=== PATIENT | male | born 2000 | race Caucasian/White ===

== ENCOUNTER 2022-10-10 11:10 | Emergency (ER) | payer BC, SELFPAY ==
[2022-10-10 11:52] VITALS: BP 134/90; PULSE 94; RESP 16; TEMP 36.6; O2SAT 100
--- NOTE | 2022-10-10 12:23 | ED.SKABFB ---
HPI - Skin/Abscess/Foreign Bdy General Chief complaint: Skin/Abscess/Foreign Body Stated complaint: infected spot on buttock Time Seen by Provider: 10/10/22 12:22 Source: patient, family, RN notes reviewed and old records reviewed Mode of arrival: ambulatory Limitations: no limitations History of Present Illness HPI narrative: 22-year-old male accompanied by significant other [facility] raised type of lesion at top of his buttocks which started on Wednesday. Patient states area has increased in size and discomfort in the past 24 hours making it difficult and uncomfortable to sit. Patient states that he did attempt to drain area with disinfected needle. Area appears to be pilonidal cyst at cleft of buttock with tissue red and inflamed with increased pain with palpation at site and warmth. Patient denies any known fevers, has taken Ibuprofen for his discomfort. MD complaint: abscess/boil (pilonidal cyst) Onset (ago): day(s) (3 days) Location: buttocks (cleft of) Severity scale (1-10): 8 Quality: other (throbbing) Treatments prior to arrival: attempted to drain pus at home and NSAID Related Data Home Medications Medication Instructions Recorded Confirmed bupropion HCl 100 mg tablet,12 hr 150 mg PO DAILY 08/25/22 10/10/22 sustained-release (Wellbutrin SR) clobetasol 0.05 % topical ointment 1 applic topical DAILY 10/10/22 10/10/22 hydrocortisone 2.5 % topical 1 applic topical DAILY 10/10/22 10/10/22 ointment mometasone 0.1 % topical solution 1 applic topical DAILY 10/10/22 10/10/22 tacrolimus 0.1 % topical ointment 1 applic topical DAILY 10/10/22 10/10/22 triamcinolone acetonide 0.1 % 1 applic topical DAILY 10/10/22 10/10/22 topical ointment Allergies Allergy/AdvReac Type Severity Reaction Status Date / Time Fish Containing Products Allergy Swelling Verified 10/10/22 11:52 of Lip/Tongue/Throat No Known Allergies Allergy Verified 10/10/22 11:52 NUTS Allergy Intermediate Unknown Uncoded 10/10/22 11:52 Review of Systems Review of Systems: CONSTITUTIONAL: Denies fever, chills, or sweats. CARDIOVASCULAR: Denies chest pain, palpitations, or edema. RESPIRATORY: Denies cough or dyspnea. GASTROINTESTINAL: Denies abdominal pain, nausea, vomiting SKIN: Reports redness and swelling to tissue area at cleft of buttock since Wednesday, no purulent drainage warmth to area with increased pain in past 24 hours, increased pain with sitting. MUSCULOSKELETAL: Denies myalgia. NEUROLOGIC: Denies headache, numbness All systems reviewed & are unremarkable except as noted in HPI and below PMFSH Past Medical History Medical History (Updated 10/10/22 @ 17:07 by Carol Apodaca NP) Depression Eczema Surgical History Surgical History Status post surgical removal of nail matrix of toe Family History Family History Father Heart disease Grandparent Heart disease Grandparent Cerebrovascular accident Sibling Depression Anxiety Social History Social History Smoking status: Never smoker Alcohol intake: current Drinks per week: 1 Alcohol use details: less than 1 a week. Substance use: never Lack of Transportation: No Lack of Food: Never True Current Housing: I Have Housing Concerned About Future Housing: No Difficulty Paying Gas/Electric Bills: No Difficulty Paying for Meds: No Currently Unemployed: No Education: High School Diploma/GED Difficulty w/ Childcare or Family Care: No Comments At time of signature, agree with nursing past medical, surgical, social and family history. There is no relevant family history pertinent to the presenting complaint Exam Narrative: GENERAL: Well-appearing, well-nourished, and in no acute distress. HEAD: Normocephalic, atraumatic. EYES:
== END 2022-10-10 13:23 | disposition home or self-care (01) ==
PROVIDERS: Emergency Provider Registered Nurse; PCP Physician Assistant
DX: L05.01 Pilonidal cyst with abscess (principal)
CPT/HCPCS: 10080; 99213; G0463

== ENCOUNTER 2022-10-10 20:05 | Emergency (ER) | payer BC, SELFPAY ==
[2022-10-10] VITALS (12 sets, daily range): BP systolic 101–125; BP diastolic 67–89; PULSE 78–109; RESP 10–22; TEMP 36.1–36.2; O2SAT 88–100
--- NOTE | 2022-10-10 20:39 | ED.NAVMDI ---
HPI - Nausea/Vomiting/Diarrhea General Chief complaint: Nausea/Vomiting/Diarrhea Stated complaint: vomiting Time Seen by Provider: 10/10/22 20:18 History of Present Illness HPI Narrative: Patient is a 22-year-old male presenting with nausea and vomiting. Patient states that he was at urgent care earlier today and diagnosed with a pilonidal cyst. It was drained and he was sent home with Augmentin. Patient states that he ate dinner and then took a dose of Augmentin. States that soon after this he started feeling nauseated. States he had multiple episodes of vomiting. Currently, he states that he still feels somewhat nauseated. States that he has some epigastric pain. He denies pain anywhere else. No headache, chest pain, shortness of breath, cough, diarrhea, dysuria. Related Data Home Medications Medication Instructions Recorded Confirmed bupropion HCl 100 mg tablet,12 hr 150 mg PO DAILY 08/25/22 10/10/22 sustained-release (Wellbutrin SR) clobetasol 0.05 % topical ointment 1 applic topical DAILY 10/10/22 10/10/22 hydrocortisone 2.5 % topical 1 applic topical DAILY 10/10/22 10/10/22 ointment mometasone 0.1 % topical solution 1 applic topical DAILY 10/10/22 10/10/22 tacrolimus 0.1 % topical ointment 1 applic topical DAILY 10/10/22 10/10/22 triamcinolone acetonide 0.1 % 1 applic topical DAILY 10/10/22 10/10/22 topical ointment Allergies Allergy/AdvReac Type Severity Reaction Status Date / Time Fish Containing Products Allergy Swelling Verified 10/10/22 20:34 of Lip/Tongue/Throat NUTS Allergy Intermediate Unknown Uncoded 10/10/22 11:52 Review of Systems Review of Systems: All systems reviewed & are unremarkable except as noted in HPI and below PMFSH Past Medical History Medical History Depression Eczema Surgical History Surgical History Status post surgical removal of nail matrix of toe Family History Family History Father Heart disease Grandparent Heart disease Grandparent Cerebrovascular accident Sibling Depression Anxiety Social History Social History Smoking status: Never smoker Alcohol intake: current Drinks per week: 1 Alcohol use details: less than 1 a week. Substance use: never Lack of Transportation: No Lack of Food: Never True Current Housing: I Have Housing Concerned About Future Housing: No Difficulty Paying Gas/Electric Bills: No Difficulty Paying for Meds: No Currently Unemployed: No Education: High School Diploma/GED Difficulty w/ Childcare or Family Care: No Exam Narrative: GENERAL: Well-appearing, well-nourished, and in no acute distress. HEAD: Normocephalic, atraumatic. EYES: PERRLA and EOMI. ENT: Nares clear, no rhinorrhea or epistaxis. Mucous membranes moist. NECK: Supple. CHEST: Clear to auscultation. No respiratory distress. HEART: Regular rate and rhythm. No murmur heard. Normal peripheral pulses. ABDOMEN: Soft, nontender, nondistended EXTREMITIES: Normal range of motion. No edema. SKIN: Warm, dry, no rash. NEURO: No focal deficits. Alert and oriented x3. PSYCH: Normal mood and affect. Course Vital Signs Vital signs: Vital Signs Temperature 97.2 F L 10/10/22 20:09 Pulse Rate 104 H 10/10/22 20:09 Respiratory Rate 16 10/10/22 20:09 Blood Pressure 125/75 10/10/22 20:09 Pulse Oximetry 98 10/10/22 20:09 Oxygen Delivery Room Air 10/10/22 20:09 Temperature 97.0 F L 10/10/22 20:25 Pulse Rate 89 10/10/22 22:31 Respiratory Rate 18 10/10/22 22:31 Blood Pressure 108/72 10/10/22 22:31 Pulse Oximetry 99 10/10/22 22:31 Oxygen Delivery Room Air 10/10/22 20:09 MDM - Nausea/Vomiting/Diarrhea MDM Narrative Medical decision judith
[2022-10-10 20:43] LABS: Basophils Percent Auto 0.4 % (0.2-1.2); Eosinophils Absolute Auto 0.3 K/mm3 (0-0.3); Eosinophils Percent Auto 2.8 % (0-4.4); Hematocrit 48.9 % (42.0-52.0); Hemoglobin 16.4 g/dL (14.0-18.0); Immature Granulocyte Absolute 0.03 K/mm3 (0.00-0.031); Immature Granulocyte Percent A 0.3 % (0-0.5); Lymphocytes Absolute Auto 2.55 K/mm3 (0.9-3.2); Lymphocytes Percent Auto 25.6 % (18.3-44.2); Mean Corpuscular HGB Conc 33.5 g/dl (32-36); Mean Corpuscular Hemoglobin 28.8 pg (26-34); Mean Corpuscular Volume 85.9 fl (80-100); Monocytes Absolute Auto 0.8 K/mm3 (0.1-0.6); Monocytes Percent Auto 8.3 % (2.6-8.5); Neutrophils Absolute Auto 6.2 K/mm3 (1.3-6.7); Neutrophils Percent Auto 62.6 % (45.5-73.1); Platelet Count Result 294 k/mm3 (150-375); Red Blood Count 5.69 M/mm3 (4.6-6.20); Red Cell Distribution Width 12.3 % (11.5-14.5)
[2022-10-10] MEDS: SODIUM CHLORIDE 0.9% IV 1,000 ML 999 ML IV CONT (20:51)
[2022-10-10] MEDS: ONDANSETRON INJ 4 MG/2 ML VIAL IV PUSH (20:52)
[2022-10-10 20:54] LABS: Alanine Aminotransferase 30 U/L (6-50); Albumin Level 5.4 g/dL (3.5-5.1); Alkaline Phosphatase 74 U/L (38-126); Anion Gap 11 mmol/L (8-16); Aspartate Amino Transferase 25 U/L (17-59); Bilirubin,Total 1.1 mg/dL (0.2-1.3); Blood Urea Nitrogen 9 mg/dL (9-20); Calcium 9.8 mg/dL (8.4-10.2); Carbon Dioxide 29 mmol/L (22-30); Chloride 100 mmol/L (98-107); Estimated CRCL calculation 94 ml/min; Estimated Glomerular Filt Rate > 60; Glucose 127 mg/dL (65-110); Lipase 77 U/L (23-300); Potassium 3.8 mmol/L (3.4-5.0); Sodium 140 mmol/L (137-145)
[2022-10-10 23:32] LABS: Appearance Urine Cloudy (Clear); Bacteria Urine None Seen /hpf; Bilirubin Urine 1+ (Negative); Blood Urine Negative (Negative); Color Urine Dark Yellow (Yellow); Glucose Urine UA Negative (Negative); Hyaline Casts Urine Present /lpf; Ketones Urine Trace mg/dL (Negative); Leukocyte Esterase Ur Negative LEU/UL (Negative); Mucus Urine Present /lpf; Nitrate Urine Negative (Negative); Protein Urine 1+ mg/dL (Negative); RBC Urine 0-2 /hpf (0-2); Squamous Epithelial Cell Urine None seen /hpf (Few); WBC Urine 0-5 /hpf; pH Urine 5.5 (5.0-9.0)
[2022-10-10 23:35] LABS: Specific Grav Ur 1.038 (1.001-1.035)
[2022-10-11] LABS: Add Urine Microscopic? YES
== END 2022-10-11 00:11 | disposition home or self-care (01) ==
PROVIDERS: Emergency Provider Emergency Medicine; PCP Physician Assistant
DX: R11.2 Nausea with vomiting, unspecified (principal); F32.A Depression, unspecified
CPT/HCPCS: 36415; 80053; 81001; 83690; 85025; 96361; 96374; 99284; J2405; J7030

== ENCOUNTER 2022-12-04 01:30 | Day surgery (SDC) | payer BC, SELFPAY ==
[2022-11-30 15:40] VITALS: BMI 29.7
--- NOTE | 2022-11-30 15:42 | SUR.PREOP ---
Report to the Outpatient Waiting Room, entrance under the green pavilion located off [facility], at time _0600 on date _12/04/22 . Planned Procedure Time: _0730 . Time changes happen often and if your time is changed the preop area will call you the afternoon before. - You and your visitor will be asked to self-screen and do not enter if you have any COVID symptoms. - A mask is optional within the hospital at this time. Patients may have clear liquids (water, carbonated beverages, clear teas, apple juice) until 3 hours prior to surgery with a maximum of 20 ounces. - No food from midnight until time of surgery - Infants may have breast milk until 4 hours before surgery, infant formula 6 hours prior to surgery. - Children will be allowed to drink immediately following surgery. If applicable, please bring a bottle or sippy cup to assist with drinking. Juice, water, soda, and popsicles are readily available. For infants on formula, please bring formula the day of surgery. Pacifiers are allowed. Take the following medications with a SIP of water the morning of surgery: ___n/a___bring pro air inhaler day of surgery DO NOT STOP ANY OF YOUR OTHER PRESCRIPTION MEDICATIONS PRIOR TO SURGERY ?EXCEPT THE FOLLOWING Medications to discontinue per physician n/a Date to take last dose___n/a Please no make-up, nail sinhala, hairspray, perfume, deodorant, or body powder the day of surgery. No jewelry (including any body piercings) or valuables the day of surgery, leave them at home. Please take a shower or bath the night before, or the morning of, surgery with an antibacterial soap. Wear comfortable, loose fitting clothing. Children are encouraged to wear pajamas. - Jewelry must be removed prior to entering the operating room. Rings and piercings that are not removed may be cut off. - The hospital will not accept responsibility for valuables. - Please leave all valuables, including medications, at home the day of surgery. If you are going home after surgery, a licensed driver helper must drive you home. - NO public transportation without another adult if you receive anesthesia. - We recommend that an adult stay with you for 24 hours following discharge. - We also recommend that you do not drive, make important decision, drink alcoholic beverages, or take any drugs that were not prescribed by your health care provider for at least 24 hours after your discharge time. For Pediatric surgeries, we recommend two adults accompany the child home. Follow any additional instructions given to you from your surgeon. If you or anyone in your household have experienced Covid symptoms in the past week, please notify your surgeon or the nurse liaison at the phone number below for possible testing. Telephone instructions given to _christopher fields and asked if any additional questions and then verbalized understanding. Patient advised to call surgeon office or pre surgery nurse liaison [phone] if any additional questions.
--- NOTE | 2022-12-03 14:20 | WPDANESEPPF ---
Anes - Initial Pre Proc Eval Procedure: Operation Date: 12/04/22 07:30 Proposed Procedures p Pilonidal Cystectomy - Ar Soto MD Date/Time: 12/03/22 14:20 Surgeon: Ar Soto MD Pre Op Diagnosis: Pilonidal Abscess Patient Data Age: 22 Gender: M Height: 1.73 m Weight: 88.63 kg Allergies Allergy/AdvReac Type Severity Reaction Status Date / Time Fish Containing Products Allergy Severe Swelling Verified 11/30/22 15:16 of Lip/Tongue/Throat NUTS Allergy Severe Swelling Uncoded 11/30/22 15:44 of Lip/Tongue/Throat Home Medications Medication Instructions Recorded Confirmed Type ProAir RespiClick 90 mcg/actuation See Rx Instructions .Route 08/25/22 11/30/22 Rx breath activated (albuterol .COMPLEX #1 ea sulfate) clobetasol 0.05 % topical ointment 1 applic topical DAILY 10/10/22 11/30/22 History hydrocortisone 2.5 % topical 1 applic topical DAILY 10/10/22 11/30/22 History ointment mometasone 0.1 % topical solution 1 applic topical DAILY 10/10/22 11/30/22 History mupirocin 2 % topical ointment 1 applic topical BID #22 grams 10/10/22 11/30/22 Rx tacrolimus 0.1 % topical ointment 1 applic topical DAILY 10/10/22 11/30/22 History triamcinolone acetonide 0.1 % 1 applic topical DAILY 10/10/22 11/30/22 History topical ointment ondansetron HCl 4 mg tablet 4 mg PO Q8H PRN nausea and 10/12/22 11/30/22 Rx vomiting #30 tabs bupropion HCl 100 mg tablet,12 hr 300 mg PO HS 11/30/22 11/30/22 History sustained-release (Wellbutrin SR) mirtazapine 7.5 mg tablet 7.5 mg PO DAILY 11/30/22 11/30/22 History Patient hx anesthesia problems: none Family hx anesthesia problems: none Results Review: All pre-operative results and documents have been reviewed as part of the pre-operative evaluation. [facility] Past Medical History Medical History (Updated 10/14/22 @ 10:01 by Lizzy Moyer) Asthma Depression Eczema Surgical History Surgical History Status post surgical removal of nail matrix of toe Family History Family History Father Heart disease Grandparent Heart disease Grandparent Cerebrovascular accident Sibling Depression Anxiety Social History Social History Smoking status: Never smoker Alcohol intake: current Drinks per week: 1 Alcohol use details: less than 1 a week. Substance use: former Substance use type: marijuana Other substance usage details: last used 11/03 Lack of Transportation: No Lack of Food: Never True Current Housing: I Have Housing Concerned About Future Housing: No Difficulty Paying Gas/Electric Bills: No Difficulty Paying for Meds: No Currently Unemployed: No Education: High School Diploma/GED Difficulty w/ Childcare or Family Care: No Living arrangements: with family Spiritual care concerns: No Anes - Eval Final PreProcedure Day of Procedure 12/03/22 14:20 Patient weight: obese Heart: regular rate and rhythm Lungs: clear to auscultation Airway: Mallampati scale class II Neurological: alert and oriented Last oral intake: >/= 8 hours ASA classification: II Emergent: no Anesthetic plan: proceed Anesthesia type and monitoring: general ETT and standard monitoring Results Review: All pre-operative results and documents have been reviewed as part of the pre-operative evaluation. Informed Consent: The patient's anesthetic plan and its attendant risks and benefits were discussed with the patient/family/POA. Questions were solicited and answers provided to the satisfaction of the patient/family/POA.
[2022-12-04] VITALS (8 sets, daily range): BP systolic 105–139; BP diastolic 53–88; PULSE 66–80; RESP 12–18; TEMP 36.2–36.6; O2SAT 97–100
--- NOTE | 2022-12-04 07:24 | PM.IMHP ---
H&P: HPI History of Present Illness Date/Time: 12/04/22 07:24 Chief Complaint: Pilonidal cyst Narrative: Nam is a 22 y/o male who is seen in the office today for evaluation of a pilonidal cyst after being seen in the [facility] on 10/10/22. He states about a week ago he noticed a raised bump at the top of his buttock. He reports that the area was red, inflamed and was painful especially when he tried to sit down. He then went to the urgent care on 10/10 and was prescribed Augmentin 875mg BID for 10 days and an I&D was done at the urgent care as well. He then reports that when he got home and had taken the first dose of the Augmentin that he then began having nausea and vomiting. He then went to the ER that same night for the vomiting. He was prescribed ondansetron for n/v and has been fine since then and has been taking antibiotics as prescribed. He does still have some slight drainage and discomfort. [facility] Past Medical History Medical History Asthma Depression Eczema Surgical History Surgical History Status post surgical removal of nail matrix of toe Family History Family History Father Heart disease Grandparent Heart disease Grandparent Cerebrovascular accident Sibling Depression Anxiety Social History Social History Smoking status: Never smoker Alcohol intake: current Drinks per week: 1 Alcohol use details: less than 1 a week. Substance use: former Substance use type: marijuana Other substance usage details: last used 11/03 Lack of Transportation: No Lack of Food: Never True Current Housing: I Have Housing Concerned About Future Housing: No Difficulty Paying Gas/Electric Bills: No Difficulty Paying for Meds: No Currently Unemployed: No Education: High School Diploma/GED Difficulty w/ Childcare or Family Care: No Living arrangements: with family Spiritual care concerns: No Meds Home Medications and Allergies Home Medications Medication Instructions Recorded Confirmed Type ProAir RespiClick 90 mcg/actuation See Rx Instructions .Route 08/25/22 11/30/22 Rx breath activated (albuterol .COMPLEX #1 ea sulfate) clobetasol 0.05 % topical ointment 1 applic topical DAILY 10/10/22 11/30/22 History hydrocortisone 2.5 % topical 1 applic topical DAILY 10/10/22 11/30/22 History ointment mometasone 0.1 % topical solution 1 applic topical DAILY 10/10/22 11/30/22 History mupirocin 2 % topical ointment 1 applic topical BID #22 grams 10/10/22 11/30/22 Rx tacrolimus 0.1 % topical ointment 1 applic topical DAILY 10/10/22 11/30/22 History triamcinolone acetonide 0.1 % 1 applic topical DAILY 10/10/22 11/30/22 History topical ointment ondansetron HCl 4 mg tablet 4 mg PO Q8H PRN nausea and 10/12/22 11/30/22 Rx vomiting #30 tabs bupropion HCl 100 mg tablet,12 hr 300 mg PO HS 11/30/22 11/30/22 History sustained-release (Wellbutrin SR) mirtazapine 7.5 mg tablet 7.5 mg PO DAILY 11/30/22 11/30/22 History Allergies Allergy/AdvReac Type Severity Reaction Status Date / Time Fish Containing Products Allergy Severe Swelling Verified 11/30/22 15:16 of Lip/Tongue/Throat NUTS Allergy Severe Swelling Uncoded 11/30/22 15:44 of Lip/Tongue/Throat Exam Const: General: comfortable and no acute distress Eyes: General: appearance normal, both eyes and all related structures Sclera: sclerae normal Pupils: Equal, round and reactive pupils present Neck: Neck: supple and no JVD Resp: Effort & Inspection: normal respiratory effort Auscultation: clear to auscultation bilaterally Cardio: Rate: regular rate Rhythm: regular rhythm GI: GI Palp: Yes Soft to palpation, No Firmness to palpation present (GI), No Tenderness to palpati
--- NOTE | 2022-12-04 07:29 | WPDHPUPDATE1 ---
History and Physical Update Update Date/Time: 12/04/22 07:29 History and Physical has been reviewed, including an updated exam of the patient. There are NO changes in the patient's condition. Risks, benefits, and alternatives have been discussed and questions answered. Patient agrees to proceed with procedure.
[2022-12-04] MEDS: LACTATED RINGERS 1,000 ML 30 ML IV CONT ×2 (07:39→09:05)
[2022-12-04] MEDS: ceFAZolin 2 GM/D5W 50 ML 2 GM/50 ML BAG IVPB (07:40)
[2022-12-04] MEDS: LIDO 1%/EPINEPHRINE 1:100,000 20 ML VIAL INFILTRATE (08:09)
[2022-12-04] MEDS: BUPivacaine HCL 0.5% PF 30 ML VIAL 20 ML INFILTRATE (08:10)
--- NOTE | 2022-12-04 09:00 | W.PM.PROC2 ---
Procedure Note - Detailed Date of Procedure 12/04/22 Pre-op Diagnosis Pilonidal cyst Post-op Diagnosis Same Procedure Performed Extensive pilonidal cystectomy. Surgeon Ar Soto MD Photo Equipment Technician Kitty Bradley [facility] Anesthesia General Indications Patient is a 22-year-old white male who presented with a recent history of a pilonidal abscess which was drained. The infection has now resolved a now presents for a formal pilonidal cystectomy. Findings Multiple pilonidal pits along the midline upper gluteal cleft. No chronic abscess noted. Description of Procedure After informed consent was obtained patient brought to the operating room placed under general endotracheal anesthesia on the gurney and then turned into the prone position on the operating table. We made sure that all the pressure points well padded. The lower back and area the upper midline gluteal cleft was then prepped and draped in usual sterile fashion. A time-out was then performed correctly identifying the patient as well as procedure to be performed. He was given Ancef for perioperative IV antibiotics. The patient had 4 separate pilonidal pits along the upper midline gluteal cleft. There did not appear to be any draining sinus tract. I then proceeded to use a scalpel to make a an elongated elliptical incision to excise out the upper midline gluteal cleft and the underlying pilonidal cyst. A dissected was carried sharply down to the dermis of the skin and then electrocautery was used to dissect down through the subcutaneous tissues all the way down to the presacral fascia. The subcutaneous tissue including the cyst and the overlying attached skin was then passed off table sent to pathology for examination. I then irrigated out the incision sterile saline solution and then hemostasis was achieved utilized electrocautery. I then proceeded to close the incision in 4 layers consisting of 0 Vicryl sutures in the deepest portions the subcutaneous tissues. This is then followed by 2 layers of interrupted 2-0 Vicryl sutures in the more intermediate layers the subcutaneous tissue. Then this was followed with a layer of interrupted 3-0 deep dermal Vicryl sutures. And then lastly interrupted 3-0 nylon sutures placed in vertical mattress fashion. This closure close all the space in the incision. There was no tension on the closure. Area was then cleaned and antibiotic ointment was applied to the incision line and then sterile dressings were applied. The patient tolerated the procedure well no complications. All sponges, needles, and instrument counts were correct at the end procedure. EBL was _ 20 __cc. The patient was awakened and taken to recovery in stable and satisfactory condition. Implants None Estimated Blood Loss 20 Drains No Packing No Pathology Yes (Pilonidal cyst to pathology) Complications No immediate complications Condition Stable Disposition PACU [facility] Billing Surgery - Charge Forward: Surgery Billing
== END 2022-12-04 11:05 | disposition home or self-care (01) ==
PROVIDERS: PCP Physician Assistant; Visit Provider Surgery
PROC: (CPT 11771; principal; 2022-12-04 07:30)
DX: L05.91 Pilonidal cyst without abscess (principal); J45.909 Unspecified asthma, uncomplicated; F32.A Depression, unspecified; L30.9 Dermatitis, unspecified; Z79.51 Long term (current) use of inhaled steroids; E66.9 Obesity, unspecified; Z68.30 Body mass index [BMI] 30.0-30.9, adult
CPT/HCPCS: 11771; 88305; A9270; J0690; J1100; J1885; J2250; J2405; J2704; J3010; J7120